=== PATIENT | male | born 1970 | race Caucasian/White ===

== ENCOUNTER 2021-04-13 12:42 | Emergency (ER) | payer SELFPAY ==
[~2021-04-13] VITALS: Ht 167.4 cm; Wt 58.9 kg
--- NOTE | 2021-04-13 13:19 | ED GI ---
General Chief Complaint: Abdominal/GI Problems Stated Complaint: BLACK STOOLS, LOW HGB Nursing Triage Note: ARRIVES FROM [facility] TO ED ROOM 07. PATIENT IS NON VERBAL. REPORT STATES PATIENT S HGB 6.4 AND HAS BEEN HAVING BLACK TARRY STOOLS. Source of Information: Patient, [facility] Records Exam Limitations: Language Barrier (Non-verbal) (CORINNA DURAN STUDENT) History of Present Illness Date Seen by Provider: Apr 13, 2021 Time Seen by Provider: 13:06 Initial Comments This is Courtney, a 51 yo M, who is here with a c/o of black tarry stools and low Hgb. He currently resides at [facility], he has a history of multiple strokes. Pt can speak, but is mainly non-verbal. Yessica, a worker from the facility is with him now. The staff found the patient last night with black and tarry stools. They ran a CBC this morning, the Hgb was reported as 6.4, and then he was brought to the ED. He had to be woken up multiple times during the exam. He shook his head no for abdominal pain, fatigue, and overall feeling poorly. Previous medical history includes strokes, drug abuse, Type 2 diabetes, hypertension, hyperlipidemia. Yessica reports that he fell earlier this week and once last week. Timing/Duration: 12-24 Hours Location: Unknown Activities at Onset: Rest Associated Symptoms: No Fatigue, No Nausea/Vomiting (CORINNA DURAN STUDENT) Allergies and Home Medications Allergies Coded Allergies: prochlorperazine (Verified Allergy, Unknown, 04/13/21) Review of Systems Review of Systems Constitutional: No malaise EENTM: Other (unable to obtain due to non-verbal status) Respiratory: Other (unable to obtain due to non-verbal status) Cardiovascular: Denies Chest Pain Gastrointestinal: Denies Abdominal Pain; Poor Appetite (from healthcare facility administrator ), Poor Fluid Intake (from healthcare facility administrator ) Genitourinary: No Symptoms Reported Musculoskeletal: other (unable to obtain due to non-verbal status) Skin: other (unable to obtain due to non-verbal status) (CORINNA DURAN STUDENT) Past Onlpxar-Vhtdqi-Hniuyv Hx Patient Social History Substance use?: Yes Substance type: Methamphetamine, Marijuana, Other (morphine ) Additional substance use comme: Mother reports 4 weeks clean (CORINNA DURAN STUDENT) Past Medical History Respiratory: No Cardiac: Yes High Cholesterol, Hypertension Neurological: Yes Stroke (multiple) Gastrointestinal: No Musculoskeletal: No Endocrine: Yes Diabetes, Insulin dep (CORINNA DURAN STUDENT) Family Medical History Heart Disease (father- [place] ), Cancer (paternal grandfather - lung cancer ), Stroke (father ) (CORINNA DURAN STUDENT) Physical Exam Vital Signs Vital Signs - First Documented 04/13/21 04/13/21 12:56 16:13 Temp 37.2 Pulse 73 Resp 15 B/P (MAP) 88/45 (59) Pulse Ox 98 O2 Delivery Room Air (KARIE GANDHI MD) Vital Signs Capillary Refill : Less Than 3 Seconds (CORINNA DURAN STUDENT) Height/Weight/BMI Height: '" Weight: lbs. oz. kg; 21.00 BMI Method: General Appearance: WD/WN, no apparent distress HEENT: No scleral icterus (R), No scleral icterus (L) Respiratory: chest non-tender, lungs clear, normal breath sounds, no respiratory distress Cardiovascular: regular rate, rhythm, no murmur Peripheral Pulses: 2+ Dorsalis Pedis (R), 2+ Left Dors-Pedis (L), 2+ Radial Pulses (R), 2+ Radial Pulses (L) Gastrointestinal: normal bowel sounds, non tender, soft Neurologic/Psychiatric: depressed affect, disoriented x 3 Skin: other (wounds located on bilateral knees. R foot 3,4,5 phalanges have black and scabbed wounds over them. Black and scabbed wounds present on top of R foot. ) (CORINNA DURAN STUDENT) Progress/Results/Core Measures Results/Orders Lab Results Laboratory Tests Test 04/13/21 13:00 04/13/21 13:03 04/13/21 13:50 Range/Units C-Reactive Protein High Sensitivity 1.19 H 0.00-0.50 MG/DL White Blood Count 15.3 H 4.3-11.0 10^3/uL Red Blood Count 2.20 L 4.30-5.52 10^6/uL Hemoglobin 7.0 L 13.3-17.7 g/dL Hematocrit 22 L 40-54 % Mean Corpuscular Volume 98 80-99 fL Mean Corpuscular Hemoglobin 32 25-34 pg Mean Corpuscular Hemoglobin Concent 32 32-36 g/dL Red Cell Distribution Width 15.9 H 10.0-14.5 % Platelet Count 577 H 130-400 10^3/uL Mean Platelet Volume 9.7 9.0-12.2 fL Immature Granulocyte % (Auto) 1 % Neutrophils (%) (Auto) 68 42-75 % Lymphocytes (%) (Auto) 21 12-44 % Monocytes (%) (Auto) 9 0-12 % Eosinophils (%) (Auto) 1 0-10 % Basophils (%) (Auto) 0 0-10 % Neutrophils # (Auto) 10.4 H 1.8-7.8 10^3/uL Lymphocytes # (Auto) 3.2 1.0-4.0 10^3/uL Monocytes # (Auto) 1.3 H 0.0-1.0 10^3/uL Eosinophils # (Auto) 0.2 0.0-0.3 10^3/uL Basophils # (Auto) 0.0 0.0-0.1 10^3/uL Immature Granulocyte # (Auto) 0.1 0.0-0.1 10^3/uL Neutrophils % (Manual) 70 % Lymphocytes % (Manual) 22 % Monocytes % (Manual) 5 % Eosinophils % (Manual) 2 % Band Neutrophils 1 % Polychromasia SLIGHT Hypochromasia SLIGHT Anisocytosis MODERATE Prothrombin Time 13.5 12.2-14.7 SEC INR Comment 1.0 0.8-1.4 Activated Partial Thromboplast Time 28 24-35 SEC Sodium Level 135 135-145 MMOL/L Potassium Level 3.8 3.6-5.0 MMOL/L Chloride Level 99 98-107 MMOL/L Carbon Dioxide Level 23 21-32 MMOL/L Anion Gap 13 5-14 MMOL/L Blood Urea Nitrogen 22 H 7-18 MG/DL Creatinine 0.78 0.60-1.30 MG/DL Estimat Glomerular Filtration Rate 105 BUN/Creatinine Ratio 28 Glucose Level 69 L 70-105 MG/DL Calcium Level 9.8 8.5-10.1 MG/DL Corrected Calcium 9.8 8.5-10.1 MG/DL Total Bilirubin 0.3 0.1-1.0 MG/DL Aspartate Amino Transf (AST/SGOT) 72 H 5-34 U/L Alanine Aminotransferase (ALT/SGPT) 77 H 0-55 U/L Alkaline Phosphatase 90 40-136 U/L Total Protein 6.8 6.4-8.2 GM/DL Albumin 4.0 3.2-4.5 GM/DL Urine Color YELLOW Urine Clarity CLEAR Urine pH 6.5 5-9 Urine Specific [place] 1.015 L 1.016-1.022 Urine Protein NEGATIVE NEGATIVE Urine Glucose (UA) NEGATIVE NEGATIVE Urine Ketones NEGATIVE NEGATIVE Urine Nitrite NEGATIVE NEGATIVE Urine Bilirubin NEGATIVE NEGATIVE Urine Urobilinogen 1.0 < = 1.0 MG/DL Urine Leukocyte Esterase NEGATIVE NEGATIVE Urine RBC (Auto) NEGATIVE NEGATIVE Urine RBC RARE /HPF Urine WBC RARE /HPF Urine Crystals NONE /LPF Urine Bacteria NEGATIVE /HPF Urine Casts NONE /LPF Urine Mucus NEGATIVE /LPF Urine Culture Indicated NO (KARIE GANDHI MD) My Orders Orders - KARIE GANDHI MD Cbc With Automated Diff (04/13/21 13:16) Comprehensive Metabolic Panel (04/13/21 13:16) Protime With Inr (04/13/21 13:16) Partial Thromboplastin Time (04/13/21 13:16) Ua Culture If Indicated (04/13/21 13:16) Ed Iv/Invasive Line Start (04/13/21 13:16) Red Cells Leukocytes Reduced (04/13/21 13:16) Type And Screen (04/13/21 13:16) Manual Differential (04/13/21 13:03) Hs C Reactive Protein (04/13/21 14:19) Chest 1 View, Ap/Pa Only (04/13/21 14:19) D50w (Emergency) Syringe (Dextrose 50% 5 (04/13/21 14:30) Ns Iv 500 Ml (Sodium Chloride 0.9%) (04/13/21 15:15) Pantoprazole Injection (Protonix Injecti (04/13/21 15:15) Ceftriaxone (Rocephin) (04/13/21 17:45) (KARIE GANDHI MD) Medications Given in ED Current Medications Medications Dose Ordered Sig/Haim Route Start Time Stop Time Status Last Admin Dose Admin Dextrose 25 ml ONCE ONCE IV 04/13/21 14:30 04/13/21 14:31 DC 04/13/21 14:35 25 ML Pantoprazole 40 mg ONCE ONCE IV 04/13/21 15:15 04/13/21 15:16 DC 04/13/21 15:58 40 MG Sodium Chloride 500 ml @ 0 mls/hr Q0M ONCE IV 04/13/21 15:15 04/13/21 15:16 DC 04/13/21 15:58 500 MLS/HR (KARIE GANDHI MD) Vital Signs/I&O 04/13/21 04/13/21 04/13/21 04/13/21 12:56 16:13 16:30 17:33 Temp 37.2 37.0 36.7 36.8 Pulse 73 80 81 82 Resp 15 18 20 18 B/P (MAP) 88/45 (59) 114/75 95/69 102/58 Pulse Ox 98 98 98 99 O2 Delivery Room Air Room Air Room Air (KARIE GANDHI MD) Blood Pressure Mean: 59 Progress Progress Note : Time: 14:16 Progress Note 1416 Spoke with Courtney's mother, who was able to provide more information. She states that he has chronic methamphetamine use and possible morphine use as well. She noted that the pt had four strokes the weekend before he was admitted to [facility] earlier in March. She mentioned that he is self-pay and that hospitals would reject him. He applied for Medicaid months ago and has not heard anything from them. She stated multiple times that she did not like the care provided here and wanted him transferred immediately to [facility] or [facility] in [place], [place]. Mother concerned due to lack of things being done to help her child. She was informed that we were wanting to speak with her and obtain consent before any blood was given. She was notified that he will need an egd and colonoscopy, which can be managed outpatient. She was told that his vital signs have been stable since her arrived this morning. This did not alleviate her anxiety and she stated that she needs to talk to a real doctor. (CORINNA DURAN STUDENT) Diagnostic Imaging Diagonstic Imaging: Xray Plain Films/CT/US/NM/MRI: chest Comments NAME: COURTNEY SARKAR MED REC#: [id number] PT STATUS: REG ER : 1970 PHYSICIAN: KARIE GANDHI MD ADMIT DATE: 04/13/21/ER Signed Date of Exam:04/13/21 CHEST 1 VIEW, AP/PA ONLY INDICATION: Leukocytosis. COMPARISON: None available. TECHNIQUE: Single radiograph of the chest dated April 13, 2021. FINDINGS: The cardiac silhouette and pulmonary vasculature are within normal limits. The lungs are clear of focal pulmonary opacity. No pleural effusion. No pneumothorax. No acute osseous abnormality. IMPRESSION: No acute cardiopulmonary abnormality. Dictated by: Dictated on workstation # [id number] Dict: 04/13/21 1520 Trans: 04/13/21 1727 [id number] [id number] Interpreted by: ABIOLA CASIANO MD Electronically signed by: ABIOLA CASIANO MD 04/13/211726 (KARIE GANDHI MD) Departure Impression Primary Impression: Severe anemia Additional Impressions: Melena Cellulitis of foot Leukocytosis Qualified Codes: D72.829 - Elevated white blood cell count, unspecified Disposition: 01 HOME, SELF-CARE Condition: Improved Departure-Patient Inst. Decision time for Depature: 17:53 (KARIE GANDHI MD) Referrals: LY HOLLOWAY BRETT D DO HUERTER, DAVID F MD (PCP/Family) Primary Care Physician BONIFACIO SHEPARD MD Patient Instructions: Cellulitis (Skin Infection), Adult (DC), Gastrointestinal Bleeding Add. Discharge Instructions: STOP PLAVIX (clopidogrel). Do not start any blood thinning medications until approved by your physician. Start Protonix as prescribed. Complete your antibiotics as prescribed. Follow-up with your primary care provider soon as possible, preferably within the next few days for reevaluation. Start with a noncarbonated clear liquid diet over the next 24 hours and gradually advance your diet with small quantities of bland food as tolerated. Use Zofran as prescribed for nausea or vomiting. Take the iron supplements with meals, and take a multivitamin daily to help with absorption of the iron. It is important that you seek follow-up with your primary care provider and referral to a surgeon or airconditioning plant operator for endoscopy due to the rectal bleeding. A list of surgeons is provided for your convenience. Call with questions or concerns. Return to the ER if there is worsening condition. All discharge instructions reviewed with patient and/or family. Voiced understanding. Scripts Multivitamin (Multivitamin) 1 Each Tablet 1 EACH PO DAILY, #30 TAB Prov: KARIE GANDHI MD 04/13/21 Ferrous Sulfate (Iron) 325 Mg Tablet 325 MG PO BID, #30 TAB Prov: KARIE GANDHI MD 04/13/21 Ondansetron (Ondansetron Odt) 4 Mg Tab.rapdis 4 MG SL Q4H PRN for NAUSEA/VOMITING, #10 TAB Prov: KARIE GANDHI MD 04/13/21 Cefdinir (Cefdinir) 300 Mg Capsule 300 MG PO BID, #20 CAP Prov: KARIE GANDHI MD 04/13/21 Pantoprazole Sodium (Protonix) 40 Mg Tablet.dr 40 MG PO DAILY, #30 TAB Prov: KARIE GANDHI MD 04/13/21 Copy Copies To 1: DOTTIE WAGNER MD, KATHRYN MED STUDENT Apr 13, 2021 13:19 KARIE GANDHI MD Apr 13, 2021 17:39
[2021-04-13 13:25] LABS: BASOPHILS % (AUTO) 0 % (0-10); EOSINOPHILS # (AUTO) 0.2 10^3/uL (0.0-0.3); EOSINOPHILS % (AUTO) 1 % (0-10); HEMATOCRIT 22 % (40-54); LYMPHOCYTES # (AUTO) 3.2 10^3/uL (1.0-4.0); LYMPHOCYTES % (AUTO) 21 % (12-44); MEAN CORPUSCULAR HEMOGLOBIN 32 pg (25-34); MEAN CORPUSCULAR HGB CONC 32 g/dL (32-36); MEAN CORPUSCULAR VOLUME 98 fL (80-99); MEAN PLATELET VOLUME 9.7 fL (9.0-12.2); MONOCYTES # (AUTO) 1.3 10^3/uL (0.0-1.0); MONOCYTES % (AUTO) 9 % (0-12); NEUTROPHILS # (AUTO) 10.4 10^3/uL (1.8-7.8); NEUTROPHILS % (AUTO) 68 % (42-75); PLATELET COUNT 577 10^3/uL (130-400); WHITE BLOOD COUNT 15.3 10^3/uL (4.3-11.0)
[2021-04-13 13:31] LABS: PROTHROMBIN TIME PATIENT 13.5 SEC (12.2-14.7)
[2021-04-13 13:34] LABS: POTASSIUM 3.8 MMOL/L (3.6-5.0)
[2021-04-13 13:35] LABS: CALCIUM 9.8 MG/DL (8.5-10.1)
[2021-04-13 13:37] LABS: TOTAL PROTEIN 6.8 GM/DL (6.4-8.2)
[2021-04-13 13:39] LABS: ANISOCYTOSIS MODERATE; BAND NEUTROPHILS 1 %; BILIRUBIN,TOTAL 0.3 MG/DL (0.1-1.0); EOSINOPHILS % (MANUAL) 2 %; HYPOCHROMASIA SLIGHT; LYMPHOCYTES % (MANUAL) 22 %; MONOCYTES % (MANUAL) 5 %; NEUTROPHILS % (MANUAL) 70 %; POLYCHROMASIA SLIGHT
[2021-04-13 13:40] LABS: CREATININE SERUM 0.78 MG/DL (0.60-1.30)
[2021-04-13 13:55] LABS: BILIRUBIN,URINE NEGATIVE (NEGATIVE); CLARITY,URINE CLEAR; COLOR,URINE YELLOW; GLUCOSE, URINE (UA) NEGATIVE (NEGATIVE); KETONES,URINE NEGATIVE (NEGATIVE); LEUKOCYTE ESTERASE ,URINE NEGATIVE (NEGATIVE); NITRITE,URINE NEGATIVE (NEGATIVE); PH,URINE 6.5 (5-9); PROTEIN,URINE NEGATIVE (NEGATIVE)
[2021-04-13 14:15] LABS: BACTERIA,URINE NEGATIVE /HPF; RBC,URINE RARE /HPF; WBC,URINE RARE /HPF
[2021-04-13] MEDS ORDERED: DEXTROSE 50% 50 ML (IMS) SYR IV ONE (14:30)
[2021-04-13] MEDS ORDERED: PANTOPRAZOLE 40 MG (PROTONIX) VIAL IV ONE (15:15)
[2021-04-13] MEDS ORDERED: NS IV 500 ML 500 ML IV ONE (15:15)
--- NOTE | 2021-04-13 15:25 | Diagnostic Imaging Report ---
INDICATION: Leukocytosis. COMPARISON: None available. TECHNIQUE: Single radiograph of the chest dated April 13, 2021. FINDINGS: The cardiac silhouette and pulmonary vasculature are within normal limits. The lungs are clear of focal pulmonary opacity. No pleural effusion. No pneumothorax. No acute osseous abnormality. IMPRESSION: No acute cardiopulmonary abnormality. Dictated by: Dictated on workstation # [id number]
[2021-04-13 16:13] VITALS: BP 114/75
[2021-04-13 16:30] VITALS: BP 95/69
[2021-04-13 17:33] VITALS: BP 102/58
[2021-04-13] MEDS ORDERED: cefTRIAXone 1,000 MG in WATER (STERILE) FOR INJECTION 10 ML IV ONE (17:45)
[2021-04-13 17:57] VITALS: BP 116/74
[2021-04-13] MEDS ORDERED: FERR-84 PO (17:57)
[2021-04-13] MEDS ORDERED: CEFD300C3 PO (17:57)
[2021-04-13] MEDS ORDERED: ONDA4TAB11 SL (17:57)
[2021-04-13] MEDS ORDERED: PANT40TA2 PO (17:57)
[2021-04-13] MEDS ORDERED: MULT-1136 PO (17:58)
== END 2021-04-13 18:09 | disposition home or self-care (01) ==
LOC: EDUNIT# 12:42 → ER 12:44
DX: D64.9 Anemia, unspecified (principal); K92.1 Melena; L03.115 Cellulitis of right lower limb; D72.829 Elevated white blood cell count, unspecified; I10 Essential (primary) hypertension; E11.9 Type 2 diabetes mellitus without complications; Z86.73 Personal history of transient ischemic attack (TIA), and cerebral infarction without residual deficits
CPT/HCPCS: 51702; 71045; 80053; 81000; 85007; 85027; 85610; 85730; 86141; 86850; 86900; 86901; 86920; 99284; P9016; 36415

== ENCOUNTER 2021-04-21 09:33 | Outpatient (CLI) | payer SELFPAY ==
[~2021-04-21] VITALS: Ht 172.7 cm; Wt 63.5 kg
[~2021-04-21 09:33] MED LIST: CEFD300C3 PO; FERR-84 PO; MULT-1136 PO; ONDA4TAB11 SL; PANT40TA2 PO
[2021-04-21] MEDS ORDERED: ATOR80TA76 PO (10:37)
[2021-04-21] MEDS ORDERED: ASPI-999 PO (10:37)
[2021-04-21] MEDS ORDERED: METF-397 PO (10:37)
[2021-04-21] MEDS ORDERED: CHOL500049 PO (10:37)
[2021-04-21] MEDS ORDERED: INSU100V39 SQ (10:37)
[2021-04-21] MEDS ORDERED: LISI10TA25 PO (10:37)
[2021-04-21] MEDS ORDERED: INSU100V6 SQ (10:37)
== END 2021-04-21 11:32 | disposition home or self-care (01) ==
LOC: PREOP 09:33
PROVIDERS: ATTEND Surgery
DX: Z01.818 Encounter for other preprocedural examination (principal)

== ENCOUNTER 2021-04-23 09:59 | Day surgery (SDC) | payer SELFPAY ==
[~2021-04-23] VITALS: Ht 172.7 cm; Wt 63.5 kg
[~2021-04-23 09:59] MED LIST changes: +ASPI-999 PO; +ATOR80TA76 PO; +CHOL500049 PO; +INSU100V39 SQ; +INSU100V6 SQ; +LISI10TA25 PO; +METF-397 PO
[2021-04-23] MEDS ORDERED: LACTATED RINGERS 1,000 ML IV ONE (10:12)
[2021-04-23 10:30] VITALS: BP 139/74
[2021-04-23] MEDS ORDERED: LACTATED RINGERS 1,000 ML IV STA (10:46)
--- NOTE | 2021-04-23 10:55 | Progress Note-Pre Operative ---
Pre-Operative Progress Note H&P Reviewed The H&P was reviewed, patient examined and no changes noted. Date Seen by Provider: Apr 23, 2021 Time Seen by Provider: 10:30 Date H&P Reviewed: Apr 23, 2021 Time H&P Reviewed: 10:30 Pre-Operative Diagnosis: anemia, heme + stool BONIFACIO SHEPARD MD Apr 23, 2021 10:55
--- NOTE | 2021-04-23 10:57 | Discharge Inst-Surgical ---
D/C Lap Instructions-DEVYN Follow Up Appt in 2 weeks Activity as tolerated High Fiber Diet 25g or more per day Avoid Alcohol, Caffeine, Spicy [place] and Acid foods. Drink 64 fluid oz or more of fluids per day. Symptoms to Report: Fever over 101 degree F, Nausea/Vomiting If any problems/questions: Contact your physician or go to Emergency Room BONIFACIO SHEPARD MD Apr 23, 2021 10:57
[2021-04-23] MEDS ORDERED: ONDANSETRON 4 MG/2 ML (SDV) Z0FRAN IVP PRN (11:00)
[2021-04-23] MEDS ORDERED: ONDANSETRON 4 MG (ZOFRAN) ORAL DISSOLVE TAB PO PRN (11:00)
[2021-04-23] MEDS ORDERED: HURRICAINE EXT TUBE (BENZOCAINE) XX PRN (11:00)
[2021-04-23] MEDS ORDERED: LIDOCAINE JELLY 2% 6 ML SYRINGE MM PRN (11:00)
[2021-04-23] MEDS ORDERED: proPOfol 200 MG/20 ML (DIPRIVAN) VIAL IV ONE ×2 (11:09→11:56)
[2021-04-23 12:15] VITALS: BP 98/65
[2021-04-23 12:19] VITALS: BP 103/63
[2021-04-23 12:20] VITALS: BP 99/53
--- NOTE | 2021-04-23 12:27 | Progress Note-Post Operative ---
Post-Operative Progess Note Surgeon (s)/Milker Machine (s) Surgeon BONIFACIO SHEPARD MD Milker Machine: none Pre-Operative Diagnosis anemia, heme + stool Post-Operative Diagnosis reflux esophagitis(stage 2), no HH, mild gastritis with healing type 3 prepyoric ulcer(5mm) with overlying fibrin clot. chronic stage 2 ext and int hemorrhoids Procedure & Operative Findings Date of Procedure 04/23/21 Procedure Performed/Findings EGD with bx. sigmoidoscopy Anesthesia Type mac Estimated Blood Loss Estimated blood loss (mL): minimal Specimens/Packing Specimens Removed ge jxn, gastric ulcer, antrum BONIFACIO SHEPARD MD Apr 23, 2021 12:27
--- NOTE | 2021-04-23 12:31 | Anesthesia-General Post-Op ---
MAC Patient Condition Mental Status/LOC: Same as Preop Cardiovascular: Satisfactory Nausea/Vomiting: Absent Respiratory: Satisfactory Pain: Controlled Complications: Absent Post Op Complications Complications None Follow Up Care/Instructions Patient Instructions None needed. Anesthesiology Discharge Order Discharge Order Patient is doing well, no complaints, stable vital signs, no apparent adverse anesthesia problems. No complications reported per nursing. JACEK BERTRAND CRNA Apr 23, 2021 12:31
[2021-04-23 12:50] VITALS: BP 96/68
--- NOTE | 2021-04-23 21:50 | OPERATIVE REPORT ---
DATE OF SERVICE: 04/23/2021 ATTENDING PRIMARY CARE PHYSICIAN: Dr. Parrish Jerry. PREOPERATIVE DIAGNOSES: Anemia, heme-positive stools. POSTOPERATIVE DIAGNOSES: Reflux esophagitis stage II, small type 3 prepyloric ulcer with an overlying fibrin clot, no active bleed, chronic stage II external and internal hemorrhoids, poor prep. PROCEDURE: EGD with biopsy, sigmoidoscopy. SURGEON: Bonifacio Shepard MD. ANESTHESIA: Monitored anesthesia care. ESTIMATED BLOOD LOSS: Minimal. FINDINGS: Reflux esophagitis stage II, small type 3 prepyloric ulcer with an overlying fibrin clot, no active bleed, chronic stage II external and internal hemorrhoids, poor prep. DISPOSITION: The patient tolerated the procedure well. INDICATIONS: The patient is a 51-year-old male, who is a resident of a [facility] facility. He suffered a hemispheric stroke and is unable to verbalize and does have significant episodes of confusion and is also wheelchair bound. Staff had noted dark tarry stools as well as diarrhea for the past 2 weeks and he had laboratory work done, which did show anemia. DESCRIPTION OF PROCEDURE: The patient was brought to the endoscopy suite, laid in the left lateral decubitus position. After adequate IV pain and sedative medications and monitored anesthesia care, the mouthpiece was applied. The endoscope was then placed in the mouth, visualizing the pharynx and hypopharyngeal region. Vocal cords, epiglottis and vallecula identified and appeared to be normal. The endoscope was then intubated, the esophageal opening and esophagus insufflated. The endoscope was then advanced to the first, second and third portion of esophagus at the level of the GE junction, reflux esophagitis stage II identified. No ulcers or strictures identified in this region and a biopsy was taken with forceps with visualization of good hemostasis. The endoscope was then advanced in the stomach and endoscope retroflexed visualizing no hiatal hernia. A type 3 prepyloric ulcer was identified, which was small with an overlying fibrin clot, no active bleeding. This was a likely cause of his anemia and dark stools. A biopsy was taken of the edge of the ulcer with forceps with visualization of good hemostasis. A biopsy was then taken of the antrum to rule out H. pylori. The endoscope was then advanced to the pylorus and first and second portion of the duodenum, which appeared normal. The endoscope was then slowly withdrawn while taking a second look and suctioning of residual air with no additional findings. Digital rectal examination was then performed, which revealed chronic stage II external and internal hemorrhoids were not actively edematous nor inflamed and no bleeding. Normal sphincter tone was felt and there were no palpable masses. Prostate gland was palpable and appeared normal. The endoscope was then intubated and anus and rectum gently insufflated. The endoscope was then advanced through the valves of [place] of the rectum, there was a very poor colonic prep with a significant amount of solid stools are still present. The endoscope was then slowly advanced while irrigating and suctioning as well as possible. Through the rectum, no polyps or any neoplasms identified. We then proceeded through the sigmoid colon where no diverticulosis identified. We then proceeded through the descending colon to the proximal transverse colon where the stool thickness increased and it was decided to stop at this point and the endoscope was slowly withdrawn while taking a second look and suctioning of residual air with no additional findings. The patient tolerated the procedure well. We will recommend the necessary lifestyle and diet accommodation, which would include small and more frequent meals, avoidance of eating at night as well as head elevation while lying supine. He is already on Protonix 40 mg daily; however, we will add Carafate 1 gram q.i.d. for the next 2 weeks, then on a p.r.n. basis to augment healing. We were unable to do a colonoscopy; however, the likelihood of the anemia or heme-positive stools is a low from the lower GI tract and at some point in the next 3 years, he will need a followup screening colonoscopy. Job ID: [id number] DocumentID: [id number] Dictated Date: 04/23/2021 12:20:34 Incinerator Plant Laborer Date: 04/23/2021 21:49:34 Dictated By: BONIFACIO SHEPARD MD
== END 2021-04-23 16:00 | disposition home or self-care (01) ==
LOC: ENDO 09:59
PROVIDERS: ATTEND Surgery
DX: K25.4 Chronic or unspecified gastric ulcer with hemorrhage (principal); K21.00 Gastro-esophageal reflux disease with esophagitis, without bleeding; K64.1 Second degree hemorrhoids; K92.1 Melena; D64.9 Anemia, unspecified; I69.328 Other speech and language deficits following cerebral infarction; I10 Essential (primary) hypertension; E11.9 Type 2 diabetes mellitus without complications; K21.9 Gastro-esophageal reflux disease without esophagitis; E78.00 Pure hypercholesterolemia, unspecified; E78.5 Hyperlipidemia, unspecified; Z79.4 Long term (current) use of insulin; Z79.82 Long term (current) use of aspirin; Z79.899 Other long term (current) drug therapy; Z79.84 Long term (current) use of oral hypoglycemic drugs; Z88.8 Allergy status to other drugs, medicaments and biological substances; Z87.891 Personal history of nicotine dependence; Z99.3 Dependence on wheelchair
CPT/HCPCS: 82947; 88305